=== PATIENT | female | born 1950 | race Caucasian/White ===

== ENCOUNTER → 2023-02-15 | Outpatient (CLI) | payer OTHER ==
--- NOTE | 2023-02-15 12:04 | BD ---
EXAMINATION TYPE: Axial Bone Density DATE OF EXAM: 02/15/2023 CLINICAL HISTORY: 72 years old Female. ICD-10 CODE: M81.0 AGE RELATED OSTEOPOROSIS Height: 61.25 Weight: 118.2 FRAX RISK QUESTIONS: Alcohol (3 or more units per day): no Family History (Parent hip fracture): no Glucocorticoids (More than 3mos): no History of Fracture in Adulthood: yes Secondary Osteoporosis: 1. Type 1 Diabetes: no 2. Hyperthyroidism: no 3. Menopause before 45: no 4. Malnutrition: no 5. Chronic liver disease: no Rheumatoid Arthritis: no Current Tobacco Use: no RISK FACTORS HISTORY OF: Hip Fracture (Right/Left): no Spine Fracture: no History of Wrist Fracture: no Surgery to Spine/Hip(right/left)/Wrist (right/left): no Family History of Osteoporosis: sister, mother Active: yes Diet low in dairy products/other sources of calcium: no Postmenopausal woman: yes Take estrogen and/or progesterone medications: no Lost more than 2 inches in height since high school: no Frequent falls: no Poor Health: no Hyperparathyroidism: no Adrenal Insufficiency: no MEDICATIONS: Prednisone or other steroids: no Thyroid Medications: no Osteoporosis Medications no Additional Medications: Bp Meds, Calcium Additional History: EXAM MEASUREMENTS: Bone mineral densitometry was performed using the [employer] System. Bone mineral density as measured about the Lumbar spine is: ----- L1-L4(G/cm2): 1.094 T Score Values are as follows: ----- L1: -2.4 ----- L2: 0.1 ----- L3: 0.3 ----- L4: -1.1 ----- L1-L4: 1.094 Z Score Values are as follows: ----- L1: -0.4 ----- L2: 2.2 ----- L3: 2.4 ----- L4: 1.0 ----- L1-L4: 1.4 baseline study Bone mineral density about the R hip (g/cm2): 0.779 Bone mineral density about the L hip (g/cm2): 0.806 T Score values are as follows: -----R Neck: -2.1 -----L Neck: -2.2 -----R Total: -1.8 -----L Total: -1.6 Z Score values are as follows: -----R Neck: -0.1 -----L Neck: -0.2 -----R Total: 0.0 -----L Total: 0.2 Baseline Study FRAX%s: The graph provided illustrates a 19.7% chance for a major osteoporotic fx and a 4.8% chance f or the hips probability for fx in 10 years time. IMPRESSION: Osteopenia (T Score between -2.5 and -1). There is slightly increased risk of fracture and the patient may be considered for treatment. Re-Screen 2-5 years. NOTE: T-SCORE=SD OF THE YOUNG ADULT MEAN.
== END | disposition home or self-care (01) ==
LOC: RADBDWWP 10:23
DX: M85.89 Other specified disorders of bone density and structure, multiple sites (principal); M81.0 Age-related osteoporosis without current pathological fracture; Z78.0 Asymptomatic menopausal state
CPT/HCPCS: 77080

== ENCOUNTER 2023-02-17 10:01 | Day surgery (SDC) | payer OTHER ==
[2023-02-09 16:35] VITALS: BMI 22.1
[~2023-02-17 10:01] MED LIST: ALPRAZolam 0.25 MG TAB PO PRN; ALPRAZolam 0.5 MG TAB PO PRN; ASPIRIN 325 MG TAB PO STA; ATORVASTATIN 80 MG TAB PO STA; HEPARIN SODIUM,PORCINE (1 ML) 2,500 UNIT in SODIUM CHLORIDE 0.9% 250 ML IRRIGATION PRN; HEPARIN SODIUM,PORCINE 10,000 UNIT in SODIUM CHLORIDE 0.9% 1,000 ML IRRIGATION PRN; NITROGLYCERIN SL TABS 0.4 MG TAB SUBLINGUAL PRN; SODIUM CHLORIDE 0.9% 1,000 ML in EMPTY BAG 1 BAG IV SCH
[2023-02-17] MEDS ORDERED: SODIUM CHLORIDE 0.9% 1,000 ML IV ONE (10:35)
[2023-02-17 10:56] LABS: Basophils % (A) 1 %; Eosinophils # (A) 0.2 k/uL (0-0.7); Eosinophils % (A) 4 %; HCT 50.7 % (34.0-46.0); HGB 16.3 gm/dL (11.4-16.0); Lymphocytes % (A) 32 %; MCH 33.6 pg (25.0-35.0); MCHC 32.3 g/dL (31.0-37.0); MCV 104.2 fL (80.0-100.0); Macrocytosis Slight; Mean Platelet Volume 7.2; Monocytes # (A) 0.3 k/uL (0-1.0); Monocytes % (A) 5 %; Neutrophils # (A) 3.6 k/uL (1.3-7.7); Neutrophils % (A) 56 %; Platelet Count 385 k/uL (150-450); RBC 4.86 m/uL (3.80-5.40); RDW 12.8 % (11.5-15.5); WBC 6.4 k/uL (3.8-10.6)
[2023-02-17 11:06] VITALS: RESP 16; TEMP 98.5
[2023-02-17 11:12] LABS: African American GFR (CKD) >90 (>60 ml/min/1.73 sqM); Anion Gap 12 mmol/L; Blood Urea Nitrogen 12 mg/dL (7-17); Calcium 9.8 mg/dL (8.4-10.2); Carbon Dioxide 25 mmol/L (22-30); Chloride 100 mmol/L (98-107); Glucose 106 mg/dL (74-99); Non-African American GFR(CKD) >90 (>60 ml/min/1.73 sqM); Potassium 3.9 mmol/L (3.5-5.1); Sodium 137 mmol/L (137-145)
[2023-02-17] MEDS ORDERED: fentaNYL (PF) 50 MCG/ML 2 ML AMP ONE ×2 (12:01→12:27)
[2023-02-17] MEDS ORDERED: LIDOCAINE 2% (PF) 20 MG/ML 5 ML VIAL SQ ONE (12:11)
[2023-02-17] MEDS ORDERED: VERAPAMIL 2.5 MG/ML 4 ML VIAL INTRAARTER ONE (12:12)
[2023-02-17] MEDS ORDERED: VERAPAMIL SYRINGE (5 MG/10 ML) INTRAARTER ONE (12:12)
[2023-02-17] MEDS ORDERED: MIDAZOLAM 2 MG/2 ML VIAL IVP ONE ×4 (12:15→12:32)
[2023-02-17] MEDS ORDERED: fentaNYL (PF) 50 MCG/1 ML VIAL IVP ONE ×4 (12:16→12:32)
[2023-02-17] MEDS ORDERED: CLOPIDOGREL 75 MG TAB ONE (12:27)
[2023-02-17] MEDS ORDERED: HEPARIN SODIUM 1,000 UN/ML (10ML VL) IV ONE ×2 (12:32→12:50)
[2023-02-17] MEDS ORDERED: CLOPIDOGREL 75 MG TAB PO ONE (12:32)
[2023-02-17] MEDS ORDERED: IOPAMIDOL-370 100ML BTL INJ ONE ×2 (12:53→12:58)
[2023-02-17] MEDS ORDERED: SODIUM CHLORIDE 0.9% 250 ML IV ONE (12:53)
[2023-02-17] MEDS ORDERED: IBUPROFEN 600 MG TAB PO PRN (13:30)
[2023-02-17] MEDS ORDERED: MAG HYDROX/AL HYDROX/SIMETH 30 ML CUP PO PRN (13:32)
[2023-02-17] MEDS ORDERED: RX INFO: IV CONTRAST WAS GIVEN 1 EACH MISC MISCELLANE PRN (13:32)
[2023-02-17] MEDS ORDERED: ZOLPIDEM 5 MG TAB PO PRN (13:32)
[2023-02-17] MEDS ORDERED: ATROPINE SULFATE 0.1 MG/ML 10ML SYRINGE IV PRN (13:32)
--- NOTE | 2023-02-17 14:19 | P.PRCINT ---
Percutaneous Coronary Int. - Percutaneous Coronary Intervention Percutaneous Coronary Intervention: PROCEDURES PERFORMED: Left heart catheterization, bilateral coronary angiography, ultrasound guided arterial access, iFR LAD and circumflex, PCI mid circumflex and OM1 with overlapping 2.25 x 8 and 2.25 x 15 mm Xience FELICIANO post dilated with a 2.5 NC balloon INDICATION: New onset chest pain occurring at rest consistent with unstable angina CONSENT:I have discussed the risks, benefits and alternative therapies for the above-mentioned procedure and for both sedation/analgesia as well as necessary blood product administration, if indicated, as they pertain to this patient. The patient has indicated understanding and acceptance of the risks and procedures discussed. PROCEDURE: After the risks, benefits and alternatives of the above mentioned procedure explained in detail with the patient, informed consent was obtained. Patient was taken to the catheterization lab and prepped and draped in usual fashion. Ultrasound guidance was used to assess for arterial access. 1% lidocaine was used to anesthetize the right radial artery. A 6-Thai sheath was placed in the right radial artery using modified Seldinger technique and ultrasound guidance. Left coronary angiography was performed with a 5-Thai JL 3.5 catheter and right coronary angiography was performed with a 5-Thai AR2 catheter in various views. A 5-Thai AR2 catheter was inserted into the left ventricle and pressure measurements were obtained. The decision was made to perform iFR of the LAD and circumflex. A 6-Thai CLS 3.5 guide was used to engage the left main. Heparin was given. A 0.014 pressure wire was advanced into the left main and normalized. It was then advanced 1 cm distal to the LAD lesion and was noted to be normal at 0.91. The wire was then redirected into the circumflex and was abnormal at 0.55. The decision was made to perform PCI of the circumflex. Predilatation was performed with a 2.0 x 8 mm balloon. Next a 2.25 x 8 mm Xience FELICIANO was placed in the proximal circumflex. There was a ostial OM1 stenosis which initially appeared somewhat related to a pseudo lesion from the wire however further imaging did show significant stenosis and therefore an additional 2.25 x 15 mm Xience FELICIANO was placed from the circumflex and OM1 branch. The stent was postdilated with a 2.5 noncompliant balloon. Final angiograms were performed. Pre-intervention there was 95% stenosis with GENNY 3 flow and postintervention there was less than 10% stenosis with GENNY 3 flow. The right radial sheath was removed and a TR band was placed with hemostasis achieved. The patient tolerated the procedure well. Patient was transported back to the post catheterization holding area in stable condition. Conscious Sedation: Patient was monitored under the direct supervision of myself for conscious sedation using Versed and fentanyl for a total duration of 55 minutes HEMODYNAMICS: Aorta: 148/86 LV: 141/14, LVEDP 20 SELECTIVE CORONARY ARTERIOGRAPHY: LEFT MAIN: The left main is a large caliber vessel which bifurcates into the LAD and circumflex. There is mild 10% left main stenosis LEFT ANTERIOR DESCENDING CORONARY ARTERY: LAD is a moderate caliber vessel which wraps around to the apex. There is a long proximal 50-60% LAD stenosis and otherwise mild luminal irregularities 20-30% mid LAD stenosis. LEFT CIRCUMFLEX CORONARY ARTERY: Left circumflex is a moderate caliber vessel a focal 95% proximal circumflex stenosis. OM1 has a ostial 50-60% stenosis. RIGHT CORONARY ARTERY: The right coronary artery is a small to moderate caliber vessel which gives off a PDA and PLV branch and is the dominant vessel. There is a mid RCA 20% stenosis. FINAL IMPRESSION: 1. CAD as described above including 50-60% LAD stenosis, 95% circumflex stenosis, OM1 50-60% stenosis 2. iFR LAD normal, iFR circumflex abnormal 3. Status post PCI mid circumflex and OM1 with overlapping 2.25 x 8 and 2.25 x 15 mm Xience FELICIANO post dilated with a 2.5 NC balloon 4. Elevated left sided filling pressures PLAN: 1. Aggressive risk factor modification per most recent ACC/AHA guidelines. 2. Continue dual antiplatelets with aspirin and Plavix for 12 months given symptoms consistent with unstable angina 3. Given statin intolerance, patient would benefit from PCSK9 inhibitor
[2023-02-17] MEDS ORDERED: ACETAMINOPHEN TAB 500 MG TAB PO STA (15:18)
[2023-02-17] MEDS ORDERED: SODIUM CHLORIDE 0.9% 500 ML 500 ML IV ONE (16:00)
[2023-02-17 18:04] VITALS: BP 162/75; PULSE 74
[2023-02-18] MEDS ORDERED: ASPIRIN 81 MG PO SCH ×2 (09:00)
[2023-02-18] MEDS ORDERED: lisinopriL 20 MG TAB PO SCH (09:00)
[2023-02-18] MEDS ORDERED: METOPROLOL SUCCINATE (ER) 25 MG TAB.ER.24H PO SCH (09:00)
[2023-02-18] MEDS ORDERED: NON FORMULARY DRUG (Vitamin C/Biotin [Hair, Skin And Nails Chew] 1 EACH Tab.Chew) PO SCH (09:00)
[2023-02-18] MEDS ORDERED: NON FORMULARY DRUG (Vitamin B Complex [Vitamin B Complex] 1 EACH Capsule) PO SCH (09:00)
== END 2023-02-17 17:25 | disposition home or self-care (01) ==
LOC: CATHCVL 10:01
PROVIDERS: ATTEND Internal Medicine
DX: I25.10 Atherosclerotic heart disease of native coronary artery without angina pectoris (principal); I10 Essential (primary) hypertension; I25.2 Old myocardial infarction; E78.5 Hyperlipidemia, unspecified; Z86.73 Personal history of transient ischemic attack (TIA), and cerebral infarction without residual deficits; Z79.02 Long term (current) use of antithrombotics/antiplatelets; Z79.82 Long term (current) use of aspirin; Z79.899 Other long term (current) drug therapy
CPT/HCPCS: 93458; 76937; 80048; 85025; 99152; 99153 ×3; C9600; C1769 ×3; C1887; C1894; C1725 ×2; C1874 ×2; J2250; J1644; Q9967; J2001; J3010

== ENCOUNTER → 2023-08-13 | Outpatient (CLI) | payer OTHER ==
--- NOTE | 2023-08-13 15:23 | XR ---
EXAMINATION TYPE: XR chest 2V DATE OF EXAM: 08/13/2023 3:04 PM CLINICAL INDICATION:Female, 73 years old with history of D45,D75.1,D75.89,I10; [facility] COMPARISON: None TECHNIQUE: XR chest 2V Frontal and lateral views of the chest. FINDINGS: Lungs/Pleura: There is flattening of the diaphragm with increased lucency of the lungs. No evidence o f pneumothorax, pleural effusion or focal consolidation. Pulmonary vascularity: Unremarkable. Heart/mediastinum: Cardiomediastinal silhouette is unremarkable. Atherosclerotic calcifications are seen in the aorta. Musculoskeletal: No acute osseous pathology. Other findings: None IMPRESSION: 1. No acute cardiopulmonary disease process. 2. COPD changes.
== END | disposition home or self-care (01) ==
LOC: RADXRMAIN 14:47
PROVIDERS: ATTEND Internal Medicine Hematology & Oncology
DX: J44.9 Chronic obstructive pulmonary disease, unspecified (principal); D75.1 Secondary polycythemia; D75.89 Other specified diseases of blood and blood-forming organs; I10 Essential (primary) hypertension
CPT/HCPCS: 71046